=== PATIENT | male | born 1990 | race American Indian/Alaskan Native ===

== ENCOUNTER 2018-11-08 23:16 | Emergency (ER) | payer MEDICAID ==
[2018-11-09] MEDS ORDERED: Sodium Chloride 0.9% 10 ML Syringe FLUSH PRN (00:22)
[2018-11-09] MEDS ORDERED: Sodium Chloride 0.9% 1,000 ML IV STA (00:22)
[2018-11-09] MEDS ORDERED: Ondansetron 4 MG/2 ML SDV IVPUSH ONE ×2 (00:25→02:30)
[2018-11-09] MEDS ORDERED: LORazepam 1 MG Tab PO ONE (02:31)
[2018-11-09] MEDS ORDERED: Sodium Chloride 0.9% 1,000 ML IV SCH (02:45)
--- NOTE | 2018-11-09 04:40 | EDM.PDOC ---
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 He is having a lot of abdominal pain and cramping as well as nausea and vomiting. He has a lot of muscular pain. He was receiving meclizine, promethazine, Klonopin, and Valium at the detox center and he felt that he was not showing any improvement and he asked to come to the emergency room and was transferred here. Abdominal Pain Score (Numeric/FACES): 26 - Related Data Allergies Allergy/AdvReac Type Severity Reaction Status Date / Time No Known Allergies Allergy Verified 11/09/18 00:11 Home Meds: Home Meds NK [No Known Home Meds] 11/09/18 [History] Social & Family History - Tobacco Use Smoking Status *Q: Current Every Day Smoker Years of Tobacco use: 20 Packs/Tins Daily: 0.5 Used Tobacco, but Quit: No Second Hand Smoke Exposure: No - Alcohol Use Days Per Week of Alcohol Use: 7 Number of Drinks Per Day: 2 Total Drinks Per Week: 14 - Recreational Drug Use Recreational Drug Use: Yes Drug Use in Last 12 Months: Yes Recreational Drug Type: Reports: Heroin, Methamphetamine Recreational Drug Use Frequency: Daily ED ROS GENERAL - Review of Systems Review Of Systems: See Below Constitutional: Reports: Chills, Fatigue. Denies: Fever Respiratory: Reports: No Symptoms Cardiovascular: Reports: No Symptoms GI/Abdominal: Reports: Abdominal Pain, Nausea, Vomiting Musculoskeletal: Reports: Muscle Pain, Muscle Stiffness Psychiatric: Reports: Agitation, Anxiety ED EXAM, GI/ABD - Physical Exam Exam: See Below Exam Limited By: No Limitations General Appearance: Alert, Anxious, Moderate Distress Respiratory/Chest: No Respiratory Distress, Lungs Clear Cardiovascular: Normal Peripheral Pulses, Regular Rate, Rhythm GI/Abdominal Exam: Normal Bowel Sounds, Other (Generalized abdominal tenderness. ). No: Guarding, Rigid Psychiatric: Anxious Course - Vital Signs Last Recorded V/S: Last Vital Signs Temp 36.3 C 11/09/18 00:19 Pulse 71 05/18/19 00:19 Resp 20 11/09/18 00:19 BP 139/82 11/09/18 00:19 Pulse Ox 100 11/09/18 00:19 - Orders/Labs/Meds Orders: Active Orders 24 hr Category Date Time Status Peripheral IV Care [RC] . DIRECTED Care 11/09/18 00:24 Active Sodium Chloride 0.9% [Normal Saline] 1,000 ml Med 11/09/18 02:45 Active IV ASDIRECTED Sodium Chloride 0.9% [Saline Flush] Med 11/09/18 00:22 Active 10 ml FLUSH ASDIRECTED PRN Peripheral IV Insertion Adult [OM.PC] Urgent Oth 11/09/18 00:22 Ordered Medication Orders Sodium Chloride (Normal Saline) 1,000 mls @ 999 mls/hr IV ASDIRECTED LASHONDA Last Admin: 11/09/18 02:34 Dose: 999 mls/hr Sodium Chloride (Saline Flush) 10 ml FLUSH ASDIRECTED PRN PRN Reason: Keep Vein Open Last Admin: 11/09/18 01:14 Dose: 10 ml Labs: Laboratory Tests 11/09/18 11/09/18 11/09/18 Range/Units 00:34 00:34 00:34 WBC 8.8 (4.5-11.0) K/uL RBC 4.93 (4.30-5.90) M/uL Hgb 14.3 (12.0-15.0) g/dL Hct 42.3 (40.0-54.0) % MCV 86 (80-98) fL MCH 29 (27-31) pg MCHC 34 (32-36) % Plt Count 364 (150-400) K/uL Neut % (Auto) 74 H (36-66) % Lymph % (Auto) 18 L (24-44) % [place] % (Auto) 7 H (2-6) % Eos % (Auto) 1 L (2-4) % Baso % (Auto) 0 (0-1) % Sodium 138 L (140-148) mmol/L Potassium 4.0 (3.6-5.2) mmol/L Chloride 101 (100-108) mmol/L Carbon Dioxide 29 (21-32) mmol/L Anion Gap 12.0 (5.0-14.0) mmol/L BUN 10 (7-18) mg/dL Creatinine 0.7 L (0.8-1.3) mg/dL Est Cr Clr Drug Dosing 186.10 mL/min Estimated GFR (MDRD) > 60 (>60) Glucose 114 H (74-106) mg/dL Lactic Acid 1.3 (0.4-2.0) mmol/L Calcium 9.5 (8.5-10.1) mg/dL Total Bilirubin 0.3 (0.2-1.0) mg/dL AST 37 (15-37) U/L ALT 43 (12-78) U/L Alkaline Phosphatase 64 (46-116) U/L Total Protein 8.2 (6.4-8.2) g/dL Albumin 3.5 (3.4-5.0) g/dL Globulin 4.7 H (2.3-3.5) g/dL Albumin/Globulin Ratio 0.7 L (1.2-2.2) Lipase 69 L (73-393) U/L Meds: Medications Generic Name Dose Route Start Last Admin Trade Name Freq PRN Reason Stop Dose Admin Sodium Chloride 1,000 mls @ 999 mls/hr 11/09/18 02:45 11/09/18 02:34 Normal Saline IV 999 mls/hr ASDIRECTED LASHONDA Administration Sodium Chloride 10 ml 11/09/18 00:22 11/09/18 01:14 Saline Flush FLUSH 10 ml ASDIRECTED PRN Administration Keep Vein Open Discontinued Medications Generic Name Dose Route Start Last Admin Trade Name Freq PRN Reason Stop Dose Admin Sodium Chloride 1,000 mls @ 500 mls/hr 11/09/18 00:22 11/09/18 00:32 Normal Saline IV 11/09/18 02:21 500 mls/hr .BOLUS STA Administration Lorazepam 1 mg 11/09/18 02:31 11/09/18 02:55 Ativan PO 11/09/18 02:32 1 mg ONETIME ONE Administration Ondansetron HCl 4 mg 11/09/18 00:25 11/09/18 00:31 Zofran IVPUSH 11/09/18 00:26 4 mg ONETIME ONE Administration Ondansetron HCl 4 mg 11/09/18 02:30 11/09/18 02:37 Zofran IVPUSH 11/09/18 02:31 4 mg ONETIME ONE Administration Departure - Departure Time of Disposition: 05:00 Disposition: DC/Tfer to Inpt Rehab Fac 62 Condition: Fair Clinical Impression: Withdrawal from opioids, Withdrawal from recreational drug - Discharge Information *PRESCRIPTION DRUG MONITORING PROGRAM REVIEWED*: No *COPY OF PRESCRIPTION DRUG MONITORING REPORT IN PATIENT ALEX: No Referrals: PCP,None [Primary Care Provider] - Forms: ED Department Discharge Additional Instructions: Zofran ODT was prescribed for nausea. Care Plan Goals: Transfer back to detox. - Problem List & Annotations (1) Withdrawal from opioids SNOMED Code(s): 74342101 Code(s): F11.23 - OPIOID DEPENDENCE WITH WITHDRAWAL Status: Acute Current Visit: Yes (2) Withdrawal from recreational drug SNOMED Code(s): 921400677 Code(s): F19.239 - OTH PSYCHOACTIVE SUBSTANCE DEPENDENCE WITH WITHDRAWAL, UNSP Status: Acute Current Visit: Yes - My Orders Last 24 Hours: My Active Orders 11/09/18 00:22 Sodium Chloride 0.9% [Saline Flush] 10 ml FLUSH ASDIRECTED PRN Peripheral IV Insertion Adult [OM.PC] Urgent 11/09/18 00:24 Peripheral IV Care [RC] . DIRECTED 11/09/18 02:45 Sodium Chloride 0.9% [Normal Saline] 1,000 ml IV ASDIRECTED - Assessment/Plan Last 24 Hours: My Active Orders 11/09/18 00:22 Sodium Chloride 0.9% [Saline Flush] 10 ml FLUSH ASDIRECTED PRN Peripheral IV Insertion Adult [OM.PC] Urgent 11/09/18 00:24 Peripheral IV Care [RC] . DIRECTED 11/09/18 02:45 Sodium Chloride 0.9% [Normal Saline] 1,000 ml IV ASDIRECTED
== END 2018-11-09 04:50 ==
LOC: JP.ED 23:16
DX: F11.23 Opioid dependence with withdrawal (principal); F17.210 Nicotine dependence, cigarettes, uncomplicated
CPT/HCPCS: 36415; 80053; 83605; 83690; 85025; 96361; 96374; 96376; 99284; A9270; J2405; J7030